=== PATIENT | male | born 1995 | race Caucasian/White ===

== ENCOUNTER 2019-04-10 10:01 | Emergency (ER) | payer OTHER ==
[~2019-04-10] VITALS: Ht 170.2 cm; Wt 72.7 kg
[2019-04-10 10:12] VITALS: BP 138/99
[2019-04-10 10:47] LABS: BASOPHILS # (AUTO) 0.03 x10^3/uL (0-0.1); BASOPHILS % (AUTO) 0 % (0-1); EOSINOPHILS # (AUTO) 0.23 x10^3/uL (0-0.4); EOSINOPHILS % (AUTO) 3 % (1-7); LYMPHOCYTES # (AUTO) 2.23 x10^3/uL (1-3.4); LYMPHOCYTES % (AUTO) 31 % (22-44); MD NO; MEAN CORPUSCULAR HGB CONC 33.5 g/dL (33.2-36.2); MEAN CORPUSCULAR VOLUME 92.6 fL (81-97); MEAN PLATELET VOLUME 8.2 fL (7.4-10.4); MONOCYTES # (AUTO) 0.75 x10^3/uL (0.2-0.8); MONOCYTES % (AUTO) 11 % (2-9); NEUTROPHILS % (AUTO) 55 % (42-75); PLATELET COUNT 286 x10^3/uL (130-400); RED CELL DISTRIBUTION WIDTH 13.3 % (9.4-14.8)
[2019-04-10 10:59] LABS: ALANINE AMINOTRANSFERASE 35 U/L (12-78); ALBUMIN 4.1 g/dL (3.4-5.0); ANION GAP 8 mmol/L (5-15); CALCIUM 8.2 mg/dL (8.5-10.1); CHLORIDE 107 mmol/L (98-107); SALICYLATE LEVEL < 1.7 mg/dL (2.8-20.0)
--- NOTE | 2019-04-10 11:00 | NUR ---
BEDSIDE REPORT FROM MARTINEZ LINARES, PT RESTING IN [facility] WITH SITTER AT BEDSIDE. PT GIVEN MORE WATER AND URINAL FOR DOA.
[2019-04-10 11:10] LABS: ALKALINE PHOSPHATASE 41 U/L (45-117); BILIRUBIN,TOTAL 0.6 mg/dL (0.2-1.0); CREATININE 0.94 mg/dL (0.7-1.3); TOTAL PROTEIN 7.9 g/dL (6.4-8.2)
--- NOTE | 2019-04-10 11:50 | NUR ---
PT HAS [facility], DECLINED BY PAT AT [facility].
--- NOTE | 2019-04-10 12:08 | NUR ---
PT SLEEPING IN GURNEY WITH SITTER AT BEDSIDE, EQUAL CHEST RISE AND FALL. NO NEEDS AT THIS TIME
--- NOTE | 2019-04-10 12:20 | NUR ---
PT GIVEN WATER AND UPDATED ON POC
[2019-04-10 12:27] LABS: AMPHETAMINE SCREEN, URINE Negative (Negative); BARBITURATE SCREEN, URINE Negative (Negative); BENZODIAZEPINE SCREEN, URINE Negative (Negative); CANNABINOID SCREEN, URINE Negative (Negative); COCAINE SCREEN, URINE Negative (Negative); METHADONE SCREEN, URINE Negative (Negative); OPIATE SCREEN, URINE Negative (Negative)
--- NOTE | 2019-04-10 12:46 | NUR ---
SOC CALLED TO INITIATE TELEPSYCH CONSULT
--- NOTE | 2019-04-10 13:00 | NUR ---
PT RESTING IN [facility], PT GIVEN PHONE TO CALL BROTHER. LUNCH TRAY ORDERED
--- NOTE | 2019-04-10 13:24 | NUR ---
[facility]
--- NOTE | 2019-04-10 13:35 | NUR ---
SOC UPDATED, GIVEN CONTACT INFO FOR NICHOL RO [phone] WHO CALLED [facility]
--- NOTE | 2019-04-10 13:57 | NUR ---
TELEPSYCH EVAL IN PROCESS
--- NOTE | 2019-04-10 14:04 | NUR ---
FATHER AT BEDSIDE TO VISIT PT, TELEPSYCH RECOMMENDING HOLD
--- NOTE | 2019-04-10 15:04 | NUR ---
PT RESTING IN GURNEY WITH FATHER AT BEDSIDE, MD AT BEDSIDE TO DISCUSS POC WITH PT AND FATHER
--- NOTE | 2019-04-10 15:34 | NUR ---
RELEASING PT FROM LEGAL HOLD AT THIS TIME. PT AND FAMILY HAVE POC AND MD COMFORTABLE WITH PLAN IN PLACE. PT TO TAKE FULL DOSE OF [place] PART OF PLAN. DISCHARGE INSTRUCTIONS INCLUDING WHEN TO RETURN TO HOSPITAL AND SUICIDE PRECAUTIONS DISCUSSED WITH PT AND FAMILY.
== END 2019-04-10 15:38 | disposition home or self-care (01) ==
LOC: ED 11:28
DX: F33.9 Major depressive disorder, recurrent, unspecified (principal)
CPT/HCPCS: 36415; 80053; 80307; 84443; 85025; 93005; 99284